=== PATIENT | female | born 1975 ===

== ENCOUNTER 2020-04-08 11:15 | Emergency (ER) | payer OTHER ==
[~2020-04-08] VITALS: Ht 172.7 cm; Wt 74.8 kg
== END 2020-04-08 16:23 | disposition home or self-care (01) ==
LOC: ER 11:15
DX: D25.1 Intramural leiomyoma of uterus (principal); N93.8 Other specified abnormal uterine and vaginal bleeding

== ENCOUNTER 2020-05-24 11:19 | Outpatient (CLI) | payer OTHER | END 2020-05-24 11:23 | disposition home or self-care (01) | LOC: MAMO-SONO 11:19 | PROVIDERS: ATTEND Specialist | DX: N60.11 Diffuse cystic mastopathy of right breast (principal); N60.12 Diffuse cystic mastopathy of left breast ==